=== PATIENT | male | born 1980 | race Caucasian/White ===

== ENCOUNTER 2018-05-18 11:31 | Emergency (ER) | payer OTHER ==
--- NOTE | 2018-05-18 11:48 | ERPHSYRPT ---
- History of Present Illness Time Seen by Provider: 05/18/18 11:47 Source: patient Exam Limitations: no limitations Physician History: 37-year-old white male who states that he has had abdominal pain off and on for 3 years arrives with complaint of periumbilical abdominal pain since 932 days she states she's had diarrhea for 3 days he's been nauseous he feels a little dizzy denies any urinary symptoms Patient does have a history of umbilical hernia he states he usually can push it back in and is able to push on his umbilical hernia without problems on arrival. Past medical history patient denies significant past medical history. Past surgical history: Patient denies Social history positive tobacco positive marijuana. Timing/Duration: other (patient states intermittant abdominal pain for 3 years but began today at 9:30 AM) Modifying Factors: Worsens With: eating, immobilization, medication, movement, rest, acetaminophen, ibuprofen, nothing Associated Symptoms: nausea, abdominal pain (Periumbilical abdominal pain), No vomiting, No shortness of breath, No heartburn, No diaphoresis, No cough, No chills, No chest pain, No fever, No headaches, No loss of appetite, No malaise, No rash, No syncope, No seizure, No weakness (Is) Allergies/Adverse Reactions: No Known Drug Allergies Allergy (Unverified 05/18/18 11:52) - Review of Systems Constitutional: No Fever, No Chills Eyes: No Symptoms Ears, Nose, & Throat: No Symptoms Respiratory: No Cough, No Dyspnea Cardiac: No Chest Pain, No Edema, No Syncope Abdominal/Gastrointestinal: Abdominal Pain, Nausea, Diarrhea, No Vomiting, No Constipation, No Hematemesis, No Hematochezia, No Melena, No Dysphagia, No Appetite Changes Genitourinary Symptoms: No Dysuria Musculoskeletal: No Back Pain, No Neck Pain Skin: No Rash Neurological: Dizziness, No Focal Weakness, No Gait Changes, No Headache, No Irritability, No Lethargy, No Paralysis, No Parasthesia, No Seizure, No Sensory Changes, No Speech Changes, No Tics, No Tremors, No Vertigo Psychological: No Symptoms Endocrine: No Symptoms All Other Systems: Reviewed and Negative - Past Medical History Pertinent Past Medical History: No - Past Surgical History Past Surgical History: No - Nursing Vital Signs Nursing Vital Signs: Initial Vital Signs Temperature 98.4 F 05/18/18 11:46 Pulse Rate 78 05/18/18 11:46 Respiratory Rate 18 05/18/18 11:46 Blood Pressure 140/80 05/18/18 11:46 O2 Sat by Pulse Oximetry 97 05/18/18 11:46 Pain Scale Pain Intensity 4 - Physical Exam General Appearance: mild distress Eye Exam: PERRL/EOMI, eyes nml inspection Ears, Nose, Throat Exam: normal ENT inspection, TMs normal, pharynx normal, moist mucous membranes Neck Exam: normal inspection, non-tender, supple, full range of motion Respiratory Exam: normal breath sounds, lungs clear, No respiratory distress Cardiovascular Exam: regular rate/rhythm, normal heart sounds, normal peripheral pulses, capillary refill <2 sec, No murmur Gastrointestinal/Abdomen Exam: soft, normal bowel sounds, tenderness ( periumbilical tenderness), hernia (Periumbilical hernia reduces easily but with pain), No distention, No mass, No guarding Back Exam: normal inspection, normal range of motion, No CVA tenderness, No vertebral tenderness Extremity Exam: normal inspection, normal range of motion, pelvis stable Neurologic Exam: alert, oriented x 3, cooperative, commercial assistant II-XII nml as tested, normal mood/affect, nml cerebellar function, nml station & gait, sensation nml, No motor deficits Skin Exam: normal color, warm, dry, No rash SpO2 Interpretation: normal - Course Nursing assessment & vital signs reviewed: Yes - CT Exams Abdomen/Pelvis CT Interpretation: Discussed w/radiologist (CT abdomen and pelvis with contrast impression: 1. 2.94.4 cm left adrenal gland mass. Findings possible adenoma and could be confirmed on a noncontrast CT exam. 2. Fatty right inguinal and fatty umbilical hernias.3. Remaining CT abdomen/pelvis with contrast exam is negative.) Ordered Tests: Active Orders 24 hr Category Date Time Status IV Insertion STAT Care 05/18/18 11:53 Active ABDOMEN AND PELVIS W CONTRAST [CT] Stat Exams 05/18/18 12:39 Completed AMYLASE Stat Lab 05/18/18 12:05 Completed CBC W DIFF Stat Lab 05/18/18 12:05 Completed CMP Stat Lab 05/18/18 12:05 Completed LIPASE Stat Lab 05/18/18 12:05 Completed UA W/RFX UR CULTURE Stat Lab 05/18/18 12:05 Completed Urine Triage Profile Stat Lab 05/18/18 12:05 Completed Medication Summary Discontinued Medications Generic Name Dose Route Start Last Admin Trade Name Misti PRN Reason Stop Dose Admin Sodium Chloride 1,000 mls @ 999 mls/hr 05/18/18 11:53 05/18/18 12:10 Sodium Chloride 0.9% 1000 Ml IV 05/18/18 12:53 999 mls/hr .Q1H1M STA Administration Sodium Chloride Confirm 05/18/18 12:05 Sodium Chloride 0.9% 1000 Ml Administered 05/18/18 12:06 Dose 1,000 mls @ ud .ROUTE .STK-MED ONE Morphine Sulfate 4 mg 05/18/18 12:42 05/18/18 12:52 Morphine Sulfate 4 Mg Inj IV 05/18/18 12:43 4 mg STAT ONE Administration Morphine Sulfate Confirm 05/18/18 12:51 Morphine Sulfate 4 Mg Inj Administered 05/18/18 12:52 Dose 4 mg .ROUTE .STK-MED ONE Promethazine HCl 12.5 mg 05/18/18 11:53 05/18/18 12:10 Phenergan 25 Mg Inj IV 05/18/18 11:54 12.5 mg STAT ONE Administration Promethazine HCl Confirm 05/18/18 12:05 Phenergan 25 Mg Inj Administered 05/18/18 12:06 Dose 25 mg .ROUTE .STK-MED ONE Lab/Rad Data: Laboratory Result Diagrams 05/18/18 12:05 05/18/18 12:05 Laboratory Results 05/18/18 05/18/18 05/18/18 Range/Units 12:05 12:05 12:05 WBC (4.0-10.5) K/mm3 RBC (4.1-5.6) M/mm3 Hgb (12.5-18.0) gm/dl Hct (42-50) % MCV (78-100) fl MCH (26-32) pg MCHC (32-36) g/dl RDW (11.5-14.0) % Plt Count (150-450) K/mm3 MPV (6-9.5) fl Gran % (36.0-66.0) % Eos # (Auto) (0-0.5) Absolute Lymphs (auto) (1.0-4.6) Absolute Monos (auto) (0.0-1.3) Lymphocytes % (24.0-44.0) % Monocytes % (0.0-12.0) % Eosinophils % (0.00-5.0) % Basophils % (0.0-0.4) % Absolute Granulocytes (1.4-6.9) Basophils # (0-0.4) Sodium 141 (137-145) mmol/L Potassium 4.0 (3.5-5.1) mmol/L Chloride 105 (98-107) mmol/L Carbon Dioxide 26 (22-30) mmol/L Anion Gap 13.5 (5-15) MEQ/L BUN 15 (9-20) mg/dL Creatinine 0.79 (0.66-1.25) mg/dL Estimated GFR > 60.0 ML/MIN Glucose 102 (74-106) mg/dL Calcium 9.5 (8.4-10.2) mg/dL Total Bilirubin 0.70 (0.2-1.3) mg/dL AST 21 (17-59) U/L ALT 20 (0-50) U/L Alkaline Phosphatase 85 (38-126) U/L Serum Total Protein 7.7 (6.3-8.2) g/dL Albumin 4.6 (3.5-5.0) g/dL Amylase 54 (30-110) U/L Lipase 26 (23-300) U/L Urine Color YELLOW (YELLOW) Urine Appearance CLEAR (CLEAR) Urine pH 5.0 (5-6) Ur Specific [place] 1.024 (1.005-1.025) Urine Protein NEGATIVE (Negative) Urine Ketones NEGATIVE (NEGATIVE) Urine Blood SMALL (0-5) Dominic/ul Urine Nitrite NEGATIVE (NEGATIVE) Urine Bilirubin NEGATIVE (NEGATIVE) Urine Urobilinogen NEGATIVE (0-1) mg/dL Ur Leukocyte Esterase NEGATIVE (NEGATIVE) Urine WBC (Auto) NONE (0-5) /HPF Urine RBC (Auto) NONE (0-2) /HPF U Epithel Cells (Auto) NONE (FEW) /HPF Urine Bacteria (Auto) NONE (NEGATIVE) /HPF Urine Mucus (Auto) SLIGHT (NEGATIVE) /HPF Urine Culture Reflexed NO (NO) Urine Glucose NEGATIVE (NEGATIVE) mg/dL Urine Opiates Level NEGATIVE (NEGATIVE) Ur Methadone NEGATIVE (NEGATIVE) Urine Barbiturates NEGATIVE (NEGATIVE) Ur Phencyclidine (PCP) NEGATIVE (NEGATIVE) Urine Amphetamine NEGATIVE (NEGATIVE) U Benzodiazepine Level NEGATIVE (NEGATIVE) Urine Cocaine NEGATIVE (NEGATIVE) Urine Marijuana (THC) POSITIVE (NEGATIVE) 05/18/18 Range/Units 12:05 WBC 6.4 (4.0-10.5) K/mm3 RBC 5.07 (4.1-5.6) M/mm3 Hgb 16.0 (12.5-18.0) gm/dl Hct 46.5 (42-50) % MCV 91.7 (78-100) fl MCH 31.6 (26-32) pg MCHC 34.4 (32-36) g/dl RDW 12.4 (11.5-14.0) % Plt Count 202 (150-450) K/mm3 MPV 11.4 H (6-9.5) fl Gran % 58.8 (36.0-66.0) % Eos # (Auto) 0.15 (0-0.5) Absolute Lymphs (auto) 1.75 (1.0-4.6) Absolute Monos (auto) 0.71 (0.0-1.3) Lymphocytes % 27.3 (24.0-44.0) % Monocytes % 11.1 (0.0-12.0) % Eosinophils % 2.3 (0.00-5.0) % Basophils % 0.5 (0.0-0.4) % Absolute Granulocytes 3.76 (1.4-6.9) Basophils # 0.03 (0-0.4) Sodium (137-145) mmol/L Potassium (3.5-5.1) mmol/L Chloride (98-107) mmol/L Carbon Dioxide (22-30) mmol/L Anion Gap (5-15) MEQ/L BUN (9-20) mg/dL Creatinine (0.66-1.25) mg/dL Estimated GFR ML/MIN Glucose (74-106) mg/dL Calcium (8.4-10.2) mg/dL Total Bilirubin (0.2-1.3) mg/dL AST (17-59) U/L ALT (0-50) U/L Alkaline Phosphatase (38-126) U/L Serum Total Protein (6.3-8.2) g/dL Albumin (3.5-5.0) g/dL Amylase (30-110) U/L Lipase (23-300) U/L Urine Color (YELLOW) Urine Appearance (CLEAR) Urine pH (5-6) Ur Specific [place] (1.005-1.025) Urine Protein (Negative) Urine Ketones (NEGATIVE) Urine Blood (0-5) Dominic/ul Urine Nitrite (NEGATIVE) Urine Bilirubin (NEGATIVE) Urine Urobilinogen (0-1) mg/dL Ur Leukocyte Esterase (NEGATIVE) Urine WBC (Auto) (0-5) /HPF Urine RBC (Auto) (0-2) /HPF U Epithel Cells (Auto) (FEW) /HPF Urine Bacteria (Auto) (NEGATIVE) /HPF Urine Mucus (Auto) (NEGATIVE) /HPF Urine Culture Reflexed (NO) Urine Glucose (NEGATIVE) mg/dL Urine Opiates Level (NEGATIVE) Ur Methadone (NEGATIVE) Urine Barbiturates (NEGATIVE) Ur Phencyclidine (PCP) (NEGATIVE) Urine Amphetamine (NEGATIVE) U Benzodiazepine Level (NEGATIVE) Urine Cocaine (NEGATIVE) Urine Marijuana (THC) (NEGATIVE) - Progress Progress: improved Progress Note: 05/18/18 13:41 Patient feeling better after IV morphine, IV normal saline, and IV Phenergan. CBC CMP UA amylase lipase essentially normal Patient's CT abdomen with contrast impression 1. 2.94.4 cm left adrenal gland mass. Finding possible adenoma and could be confirmed on a noncontrasted CT exam. 2. Fatty right inguinal hernia and fatty umbilical hernias 3. Remaining CT abdomen and pelvis with contrast exam is negative I have informed the patient of his CT findings the inguinal and umbilical hernia are fatty hernias. Patient appears to be stable. I have informed him of the left adrenal mass. I have recommended that they follow-up with their family doctor (alexandro) or Dr. Mejia. And and recommended that they do need follow-up for this. Will write a small amount of Jolo for pain and tell patient to avoid straining his abdomen. - Departure Time of Disposition: 13:44 Departure Disposition: Home Clinical Impression: Right inguinal hernia, Mass of left adrenal gland Abdominal pain Qualifiers: Abdominal location: periumbilical Qualified Code(s): R10.33 - Periumbilical pain Umbilical hernia Qualifiers: Obstruction and gangrene presence: without obstruction or gangrene Qualified Code(s): K42.9 - Umbilical hernia without obstruction or gangrene Condition: Fair Critical Care Time: No Referrals: DOCTOR,NO FAMILY [Primary Care Provider] - Additional Instructions: Return home. Plenty of fluids. Clear fluids only 24-48 hours if abdominal pain. Avoid abdominal straining. Jolo 5/325 #12 one orally every 4-6 hours as needed for pain. Follow-up with your family doctor (alexandro) or Dr. Mejia. Call for an appointment and arrange follow-up. You do have a fatty umbilical hernia, a right fatty inguinal hernia, and a left adrenal mass. You will need follow-up. Return for acute distress or for severe symptoms. Prescriptions: Hydrocodone/Acetaminophen [Jolo 5-325 Tablet] 1 tablet PO Q4-6HPRN PRN #12 tablet MDD 6 tablets PRN Reason: Pain
[2018-05-18] MEDS ORDERED: Phenergan 25 MG INJ ONE (12:05)
[2018-05-18] MEDS ORDERED: Sodium Chloride 0.9% 1000 ML 1,000 ML ONE (12:05)
[2018-05-18] MEDS: Sodium Chloride 0.9% 1000 ML 1,000 ML IV STA (12:10)
[2018-05-18] MEDS: Phenergan 25 MG INJ IV ONE (12:10)
[2018-05-18 12:24] LABS: Appearance CLEAR (CLEAR); Bilirubin NEGATIVE (NEGATIVE); Blood SMALL Ery/ul (0-5); Glucose NEGATIVE (NEGATIVE); Ketones NEGATIVE (NEGATIVE); Leukocyte Esterase NEGATIVE (NEGATIVE); Nitrite NEGATIVE (NEGATIVE); Protein,Urine Dip NEGATIVE (Negative); Specific Gravity 1.024 (1.005-1.025); Urobilinogen NEGATIVE mg/dL (0-1)
[2018-05-18 12:29] LABS: BASOPHIL % 0.5 % (0.0-0.4); Basophil (Absolute #) 0.03 (0-0.4); Eosinophil % 2.3 % (0.00-5.0); Eosinophil (Absolute #) 0.15 (0-0.5); Granulocyte Absolute (ANC) 3.76 (1.4-6.9); Granulocytes % 58.8 % (36.0-66.0); Hematocrit 46.5 % (42-50); Lymphocyte (Absolute #) 1.75 (1.0-4.6); Lymphocytes % 27.3 % (24.0-44.0); Mean Cell Volume 91.7 fl (78-100); Mean Corpuscular Hemoglobin 31.6 pg (26-32); Mean Corpuscular Hgb Concent. 34.4 g/dl (32-36); Mean Platelet Volume 11.4 fl (6-9.5); Monocyte (Absolute #) 0.71 (0.0-1.3); Monocytes % 11.1 % (0.0-12.0); Platelet Count 202 K/mm3 (150-450); Red Blood Count 5.07 M/mm3 (4.1-5.6); Red Cell Distribution Width 12.4 % (11.5-14.0); White Blood Count 6.4 K/mm3 (4.0-10.5)
[2018-05-18 12:31] LABS: ALBUMIN 4.6 g/dL (3.5-5.0); ALKALINE PHOSPHATASE 85 U/L (38-126); AMYLASE 54 U/L (30-110); ANION GAP 13.5 MEQ/L (5-15); BLOOD UREA NITROGEN 15 mg/dL (9-20); CHLORIDE 105 mmol/L (98-107); Calcium 9.5 mg/dL (8.4-10.2); Carbon Dioxide 26 mmol/L (22-30); Creatinine 1 0.79 mg/dL (0.66-1.25); Glucose 102 mg/dL (74-106); LIPASE 26 U/L (23-300); SGOT/AST 21 U/L (17-59); SGPT/ALT 20 U/L (0-50); SODIUM 141 mmol/L (137-145); Total Protein 7.7 g/dL (6.3-8.2)
[2018-05-18 12:33] LABS: Amphetamine,Urine NEGATIVE (NEGATIVE); Barbiturate,Urine NEGATIVE (NEGATIVE); Benzodiazepine,Urine NEGATIVE (NEGATIVE); Cocaine,Urine NEGATIVE (NEGATIVE); Methadone,Urine NEGATIVE (NEGATIVE); Opiate,Urine NEGATIVE (NEGATIVE); PCP,Urine NEGATIVE (NEGATIVE); THC,Urine POSITIVE (NEGATIVE)
[2018-05-18] MEDS ORDERED: MORPHINE SULFATE 4 MG INJ ONE (12:51)
[2018-05-18] MEDS: MORPHINE SULFATE 4 MG INJ IV ONE (12:52)
--- NOTE | 2018-05-18 13:37 | XRAY ---
Indication: Intermittent abdomen pain for 3 years. Diarrhea. Multiple contiguous axial images obtained through the abdomen and pelvis using 100 cc Isovue 370 contrast only. Comparison: None Lung bases demonstrates minimal bibasilar atelectasis/scarring. No infiltrate or effusion. Heart is not enlarged. Noncontrasted stomach and bowel loops appear nonobstructed. Normal appendix. No free fluid/air. 2.9 x 4.4 cm left adrenal gland noncalcified mass. Remaining liver, gallbladder, pancreas, spleen, right adrenal gland, kidneys, ureters, bladder, and aorta appear unremarkable. No pathologic retroperitoneal lymphadenopathy. Osseous structures intact. Tiny multilevel thoracolumbar Schmorl nodes. Small fatty right inguinal and fatty umbilical hernias. Impression: 1. 2.9 x 4.4 cm left adrenal gland mass. Finding possible adenoma and could be confirmed on a noncontrast CT exam. 2. Fatty right inguinal and fatty umbilical hernias. 3. Remaining CT abdomen/pelvis with contrast exam is negative. CT DI 23.68
[2018-05-18 14:25] VITALS: BP 140/58; PULSE 97; O2SAT 94
== END 2018-05-18 14:28 | disposition home or self-care (01) ==
LOC: ED 11:31
DX: K40.90 Unilateral inguinal hernia, without obstruction or gangrene, not specified as recurrent (principal); N28.89 Other specified disorders of kidney and ureter; R10.33 Periumbilical pain; K42.9 Umbilical hernia without obstruction or gangrene; F17.200 Nicotine dependence, unspecified, uncomplicated
CPT/HCPCS: 36415; 74177; 80053; 80307; 81001; 82150; 83690; 85025; 96374; 96375; 99284; J2270; J2550

== ENCOUNTER 2018-06-30 06:57 | Day surgery (SDC) | payer OTHER ==
[~2018-06-30 06:57] MED LIST: Lactated Ringers 1,000 ML IV ONE; Sensorcaine 0.25% 10 ML ONE
[2018-06-30] MEDS ORDERED: SUBLIMAZE 250 MCG/5 ML IV ONE (06:58)
[2018-06-30] MEDS ORDERED: Zemuron 100 MG/10 ML IJ ONE (06:58)
[2018-06-30] MEDS ORDERED: BRIDION 200MG/2ML IV ONE (06:58)
[2018-06-30] MEDS ORDERED: DIPRIVAN 200 MG/20 ML IV ONE (06:58)
[2018-06-30] MEDS ORDERED: Versed 2 MG/2 ML Injection IV ONE (06:58)
[2018-06-30] MEDS ORDERED: Lactated Ringers 1,000 ML IV ONE (07:29)
[2018-06-30] MEDS ORDERED: CEFAZOLIN 2 GM-D5W BAG** 2 GM/50 ML ML IV ONE (07:29)
[2018-06-30] MEDS ORDERED: CEFAZOLIN 2 GM-D5W BAG** 2 GM/50 ML ML IV SCH (07:30)
[2018-06-30] MEDS ORDERED: Lactated Ringers 1,000 ML IV SCH ×2 (07:30→08:00)
[2018-06-30] MEDS ORDERED: DILAUDID 2 MG INJECTION ONE (09:56)
[2018-06-30] MEDS ORDERED: Zofran 4 MG/2 ML VIAL ONE (10:03)
[2018-06-30 11:23] VITALS: BP 133/76; PULSE 80; O2SAT 96
--- NOTE | 2018-06-30 12:31 | OP ---
SURGERY DATE/TIME: 06/30/2018 0850 PREOPERATIVE DIAGNOSIS: Symptomatic incarcerated umbilical hernia. POSTOPERATIVE DIAGNOSIS: Incarcerated hernia symptomatic. PROCEDURE: Umbilical herniorrhaphy with mesh. SURGEON: Romulo Mejia M.D. ANESTHESIA: General. COMPLICATIONS: None. CONDITION: Stable. INDICATION: The hernia was marked preoperatively. DESCRIPTION OF PROCEDURE: Taken to surgery. General anesthetic. Routine prep and drape. Time out performed. Curvilinear infra-umbilical incision. Hernia sac was bilobed. The fascia defined. The defect was large enough to justify mesh. It was about 2 cm. There is a small pinpoint ventral 1 cm above this that was reduced and closed with 0 Prolene. The mesh was soaked. It was placed. It was pulled up four quadrants. Four inner quadrant sutures 0 Prolene. Subcutaneous tissue and umbilicus closed with 4-0 Vicryl. Compressive umbilical dressing applied. The patient tolerated the procedure satisfactorily. 0.25% Marcaine had been placed.
== END 2018-06-30 11:17 | disposition home or self-care (01) ==
LOC: SDC 06:57
PROVIDERS: ATTEND Surgery
DX: K42.0 Umbilical hernia with obstruction, without gangrene (principal)
CPT/HCPCS: J0690; J1170; J2250; J2405; J2704; J3010; L0625

== ENCOUNTER 2021-02-10 20:20 | Emergency (ER) | payer MEDICAID, OTHER ==
[2021-02-10 22:30] VITALS: O2SAT 97
--- NOTE | 2021-02-10 23:10 | ERPHSYRPT ---
- History of Present Illness Historian: patient Exam Limitations: no limitations Patient Subjective Stated Complaint: I've quarantined myself for the last 3 days because I've had some symptoms of covid and I want to know if I have covid so I don't expose someone. Triage Nursing Assessment: pt c/o cough which is harsher than normal, low grade fever, diarrhea and headache. Pt usually has a cough due to being a smoker but this current cough is harsher than normal. Pt also states, "I can smell paint and I haven't been around paint". Lungs sounds are diminished throughout with exp wheezes noted. Physician History: 40 yo wm w diarrhea,mild nausea, myalgias, mild cough wo fever/coryza x3 days. Timing/Duration: day(s) (3 days) Activities at Onset: rest Quality: other (No pain) Pain Radiation: no radiation Severity of Pain-Max: none Severity of Pain-Current: none Modifying Factors: Improves With: nothing Associated Symptoms: diarrhea, nausea, No back, No chest pain, No diaphoresis, No fever/chills, No fatigue, No headache, No heartburn, No loss of appetite, No neck pain, No rash, No shortness of breath, No syncope, No vomiting, No weakness Previous symptoms: no prior history Allergies/Adverse Reactions: lidocaine Allergy (Intermediate, Verified 02/10/21 22:30) Swelling Home Medications: No Reportable Medications [No Reported Medications] 02/10/21 [History] Hx Tetanus, Diphtheria Vaccination/Date Given: Yes Hx Influenza Vaccination/Date Given: No Hx Pneumococcal Vaccination/Date Given: No Immunizations Up to Date: Yes Travel Risk - International Travel Have you traveled outside of the country in past 3 weeks: No - Coronavirus Screening Are you exhibiting any of the following symptoms?: Yes Symptoms: Fever, Cough: New Onset, Vomiting/Diarrhea, Headaches/Body Aches/Fatigue Close contact with a COVID-19 positive Pt in past 14-21 Days: No - Vaccine Status Have you recieved a Covid-19 vaccination: No - Review of Systems Constitutional: No Symptoms, Lethargy Eyes: No Symptoms Ears, Nose, & Throat: No Symptoms Respiratory: No Symptoms, Cough Cardiac: No Symptoms Abdominal/Gastrointestinal: No Symptoms, Nausea, Diarrhea Genitourinary Symptoms: No Symptoms Musculoskeletal: No Symptoms, Myalgias Skin: No Symptoms Neurological: No Symptoms Psychological: No Symptoms Endocrine: No Symptoms Hematologic/Lymphatic: No Symptoms Immunological/Allergic: No Symptoms - Past Medical History Pertinent Past Medical History: Yes Neurological History: No Pertinent History ENT History: No Pertinent History Cardiac History: No Pertinent History Respiratory History: Other Endocrine Medical History: No Pertinent History Musculoskeletal History: No Pertinent History GI Medical History: GERD History: No Pertinent History Psycho-Social History: No Pertinent History Male Reproductive Disorders: No Pertinent History Other Medical History: current everyday smoker - Past Surgical History Past Surgical History: Yes Neuro Surgical History: No Pertinent History Cardiac: No Pertinent History Respiratory: No Pertinent History Gastrointestinal: Hernia Repair Genitourinary: No Pertinent History Musculoskeletal: No Pertinent History Male Surgical History: No Pertinent History Other Surgical History: Hx of oral surgery. - Social History Smoking Status: Current every day smoker How long have you smoked: 26 yrs Exposure to second hand smoke: Yes Drug Use: none Patient Lives Alone: Yes - Nursing Vital Signs Nursing Vital Signs: Initial Vital Signs Temperature 98.8 F 02/10/21 22:17 Pulse Rate 80 02/10/21 22:17 Respiratory Rate 20 02/10/21 22:17 Blood Pressure 140/88 02/10/21 22:17 O2 Sat by Pulse Oximetry 98 02/10/21 22:17 Pain Scale Pain Intensity 0 Hypertensive - Physical Exam General Appearance: no apparent distress Eye Exam: PERRL/EOMI, eyes nml inspection Ears, Nose, Throat Exam: normal ENT inspection, TMs normal, pharynx normal, moist mucous membranes Neck Exam: normal inspection, non-tender, supple, full range of motion, No meningismus Respiratory Exam: airway intact, wheezing (Occ B), No respiratory distress Cardiovascular Exam: regular rate/rhythm, normal heart sounds, normal peripheral pulses, No murmur Gastrointestinal/Abdomen Exam: soft, normal bowel sounds, No tenderness Back Exam: normal inspection, normal range of motion, No CVA tenderness, No vertebral tenderness Extremity Exam: normal inspection, normal range of motion Neurologic Exam: alert, oriented x 3, cooperative, business excellence manager II-XII nml as tested, normal mood/affect, nml cerebellar function, sensation nml, No motor deficits, No sensory deficit Skin Exam: normal color, warm, dry, No rash Lymphatic Exam: No adenopathy SpO2 Interpretation: normal SpO2: 97 O2 Delivery: Room Air - Course Nursing assessment & vital signs reviewed: Yes - Progress Progress Note: 02/10/21 23:09 Sars sent to outside lab Counseled pt/family regarding: diagnosis, need for follow-up - Departure Departure Disposition: Home Clinical Impression: Diarrhea Condition: Stable Critical Care Time: No Referrals: DOCTOR,NO FAMILY [Primary Care Provider] - Instructions: Diarrhea in Adolescents and Adults Additional Instructions: Fluids Rest Covid19 test will be back in 2-3 days Return to ER as needed
[2021-02-10 23:13] VITALS: BP 148/81; PULSE 87
== END 2021-02-10 23:21 | disposition home or self-care (01) ==
LOC: ED 20:20
DX: R19.7 Diarrhea, unspecified (principal); R05 Cough; R51.9 Headache, unspecified; R50.9 Fever, unspecified; M79.18 Myalgia, other site; J00 Acute nasopharyngitis [common cold]; R11.0 Nausea
CPT/HCPCS: 99283; U0003

== ENCOUNTER 2025-03-13 10:01 | Emergency (ER) | payer OTHER ==
[2025-03-13 10:16] VITALS: TEMP 97.2
[2025-03-13 10:22] LABS: BASOPHIL % 0.5 % (0.2-1.2); Basophil (Absolute #) 0.05 x10^3/uL (0.01-0.08); Eosinophil (Absolute #) 0.19 x10^3/uL (0.04-0.54); Hematocrit 44.8 % (40.1-51.0); Hemoglobin 14.5 g/dL (13.7-17.5); IMMATURE GRAN # 0.05 x10^3u/L (0.001-0.031); IMMATURE GRAN % 0.5 % (0.001-0.429); Lymphocyte (Absolute #) 1.86 x10^3/uL (1.32-3.57); Mean Corpuscular Hemoglobin 30.9 pg (25.7-32.2); Mean Corpuscular Hgb Concent. 32.4 g/dL (32.3-36.5); Monocyte (Absolute #) 1.10 x10^3/uL (0.30-0.82); NUCLEATED RBC # 0.00 x10^3u/L (0.00-0.012); NUCLEATED RBC % 0.0 % (0.00-0.2); Platelet Count 267 x10^3/uL (163-337); Red Blood Count 4.69 x10^6/uL (4.63-6.08); White Blood Count 10.3 x10^3/uL (4.23-9.07)
[2025-03-13] MEDS ORDERED: Sterile H2O 10 ml IJ ONE (10:30)
[2025-03-13] MEDS ORDERED: Magnesium 1 Gm / 100 Ml D5W*** 200 ML IV ONE (10:30)
[2025-03-13] MEDS: solu-MEDROL 125 MG, Sterile H2O 10 ml 2 ML IV ONE (10:31)
[2025-03-13] MEDS: Magnesium 1 Gm / 100 Ml D5W*** 100 ML IV SCH (10:32)
[2025-03-13] MEDS ORDERED: PROVENTIL Solution 2.5 MG/0.5 ML IH ONE (10:34)
[2025-03-13] MEDS ORDERED: DUONEB 0.5-3 MG/3 ml Neb IH ONE (10:34)
--- NOTE | 2025-03-13 10:40 | XRAY ---
Indication: Chest pain. Comparison: May 06, 2024 Portable chest inflated and clear. Heart and mediastinal structures within normal limits. Bony thorax intact. No new/acute findings. Impression: Continued nonacute chest.
[2025-03-13 10:45] LABS: Calcium 9.2 mg/dL (8.4-10.2); Carbon Dioxide 34.0 mmol/L (22-30); Creatinine 1 0.67 mg/dL (0.66-1.25); EST GLOMERULAR FILTRATION RATE 119.6 ML/MIN; Glucose 107.0 mg/dL (74-106); NT PRO BNPII 20.4 pg/mL (<300); Potassium 4.3 mmol/L (3.5-5.1); SGOT/AST 27.0 U/L (17-59); SGPT/ALT 25.0 U/L (0-50); Total Protein 7.1 g/dL (6.3-8.2)
[2025-03-13] MEDS: PROVENTIL 2.5 MG/3 ML NEB IH ONE (10:49)
[2025-03-13] MEDS: DUONEB 0.5-3 MG/3 ml Neb IH ONE (10:49)
[2025-03-13 11:05] LABS: INR 0.99 (0.8-3.0); PROTIME 11.1 SECONDS (9.4-12.5); PTT 30.6 SECONDS (25.1-36.5)
--- NOTE | 2025-03-13 11:20 | ERPHSYRPT ---
- History of Present Illness Time Seen by Provider: 03/13/25 10:11 Source: patient Patient Subjective Stated Complaint: pt here for chest pain for 45 mins. prior to arrival, he states he was resting when pain started, he is noncompliant with meds. also reports that he has been ill for 3 weeks with cough, congestion, runny nose but no fever. Triage Nursing Assessment: pt alert, arrived per wc, resp easy, falls asleep at times during treaments, easily awakes. no cough, chest clear, moves all ext well, skin w/d/p Physician History: This is a 44-year-old male complaining of 45-minute left-sided chest pain nonradiating constant which began prior to arrival. Patient states that he, "had a heart attack 5 years ago" where he was admitted to the hospital, "and had some scans done" and no other procedures such as cardiac cath. In discussing with him it is indeterminate whether he had a heart attack or was admitted for chest pain which by his description seems to be more the latter. He apparently moved from [place] and was post to be on "medications, but I do not know what they are". Patient does smoke heavily, but states he is gone from 5 packs a day to 2 to 3 packs a day. Denies history of asthma or COPD. Patient does have shortness of breath. He has been coughing. Patient has chronic leg edema. Patient does smoke marijuana, but denies other drugs. Denies alcohol abuse. Allergies/Adverse Reactions: lidocaine Allergy (Intermediate, Verified 03/13/25 10:02) Swelling pt now states he is not 02/2025 Home Medications: No Reportable Medications [No Reported Medications] 02/10/21 [History] Hx Tetanus, Diphtheria Vaccination/Date Given: Yes Hx Influenza Vaccination/Date Given: No Hx Pneumococcal Vaccination/Date Given: No Immunizations Up to Date: Yes Travel Risk - International Travel Have you traveled outside of the country in past 3 weeks: No - Emerging Infectious Disease Are you exhibiting symptoms associated with any current EIDs: No - Review of Systems All Other Systems: Reviewed and Negative (As per HPI otherwise negative) - Past Medical History Pertinent Past Medical History: Yes Neurological History: No Pertinent History ENT History: No Pertinent History Cardiac History: No Pertinent History, Coronary Artery Disease, Myocardial Infarction (SD) Respiratory History: Sleep Apnea, Other Endocrine Medical History: No Pertinent History Musculoskeletal History: No Pertinent History GI Medical History: GERD History: No Pertinent History Psycho-Social History: No Pertinent History Male Reproductive Disorders: No Pertinent History Other Medical History: current everyday smoker - Past Surgical History Past Surgical History: Yes Neuro Surgical History: No Pertinent History Cardiac: No Pertinent History Respiratory: No Pertinent History Gastrointestinal: Hernia Repair Genitourinary: No Pertinent History Musculoskeletal: No Pertinent History Male Surgical History: No Pertinent History Other Surgical History: Hx of oral surgery. - Social History Smoking Status: Current every day smoker How long have you smoked: 26 yrs Exposure to second hand smoke: Yes Drug Use: marijuana - Social Determinants of Health Will the patient participate in the screening: Declined to provide - Nursing Vital Signs Nursing Vital Signs: Initial Vital Signs Pulse Rate 78 03/13/25 10:05 Respiratory Rate 15 03/13/25 10:05 Blood Pressure 171/104 03/13/25 10:05 Pain Scale Pain Intensity 10 - Physical Exam SpO2: 91 Comments: 03/13/25 11:17 General: Well-nourished well-developed. No apparent distress. Obese. HEENT: Normocephalic atraumatic no obvious facial or neck deformity or injury. Neck: Supple. No deformity or mass noted. CV: RRR NL Perfusion. No edema Resp: No Respiratory distress. Bilateral very diminished breath sounds. Back: Patient has AN 8 cm round fungating vascular bleeding mass over his left superior scapular region which she states has "been there" for some time. Patient has never had it looked at. Abd: ND SNT MSK: No deformity or TTP Neuro: Alert and [place] x4. No gross focal neurologic changes Psych: No SI, HI or grave disability Ordered Tests: Active Orders 24 hr Category Date Time Status Cooling Pan Tender STAT Care 03/13/25 10:13 Active EKG-ER Only STAT Care 03/13/25 10:11 Active IV Insertion STAT Care 03/13/25 10:11 Active CHEST 1 VIEW (PORTABLE) Stat Exams 03/13/25 10:12 Completed CHEST WITH CONTRAST [CT] Stat Exams 03/13/25 10:28 Completed ABG [ARTERIAL BLOOD GASES] Stat Lab 03/13/25 11:20 Completed CBC W DIFF Stat Lab 03/13/25 10:00 Completed CMP Stat Lab 03/13/25 10:00 Completed D-DIMER QUANTITATIVE Stat Lab 03/13/25 10:00 Completed NT PRO BNPII Stat Lab 03/13/25 10:00 Completed PROTIME WITH INR Stat Lab 03/13/25 10:00 Completed PTT Stat Lab 03/13/25 10:00 Completed TROPONIN Q4H Lab 03/13/25 10:00 Completed TROPONIN Q4H Lab 03/13/25 13:10 Completed Respiratory Therapy Assessment DAILY RT 03/13/25 10:50 Active Medication Summary Generic Name Dose Route Start Last Admin Trade Name Freq PRN Reason Stop Dose Admin Magnesium Sulfate/Dextrose 100 mls @ 100 mls/hr 03/13/25 10:30 03/13/25 12:25 Magnesium 1 Gm / 100 Ml D5w IV 03/13/25 12:29 Infused Q1H ELIGIO Infusion Discontinued Medications Generic Name Dose Route Start Last Admin Trade Name Freq PRN Reason Stop Dose Admin Albuterol Sulfate 7.5 mg 03/13/25 10:27 03/13/25 10:49 Albuterol Sulfate 2.5 Mg/3 Ml Neb IH 03/13/25 10:28 7.5 mg STAT ONE Administration Albuterol Sulfate Confirm 03/13/25 10:34 Albuterol Solution 2.5 Mg/0.5 Ml Ud Solution Administered 03/13/25 10:35 Dose 2.5 mg IH .STK-MED ONE Albuterol/Ipratropium 3 ml 03/13/25 10:27 03/13/25 10:49 Ipratropium/Albuterol Sulfate 3 Ml Ampul.Neb IH 03/13/25 10:28 3 ml STAT ONE Administration Albuterol/Ipratropium Confirm 03/13/25 10:34 Ipratropium/Albuterol Sulfate 3 Ml Ampul.Neb Administered 03/13/25 10:35 Dose 3 ml IH .STK-MED ONE Aspirin 324 mg 03/13/25 13:07 03/13/25 13:20 Aspirin 81 Mg Tab.Chew PO 03/13/25 13:08 324 mg STAT ONE Administration Aspirin Confirm 03/13/25 13:19 Aspirin 81 Mg Tab.Chew Administered 03/13/25 13:20 Dose 324 mg .ROUTE .STK-MED ONE Methylprednisolone Sodium 0 mg 03/13/25 10:27 03/13/25 10:31 Succinate 125 mg/ Sterile IV 03/13/25 10:28 125 mg Water 2 ml STAT ONE Administration Methylprednisolone Sodium Succinate Confirm 03/13/25 10:30 Methylprednis Sod Succ 125 Mg/2 Ml Vial Administered 03/13/25 10:31 Dose 125 mg .ROUTE .STK-MED ONE Sterile Water Confirm 03/13/25 10:30 Water For Injection,Sterile 10 Ml Vial Administered 03/13/25 10:31 Dose 10 ml IJ .STK-MED ONE Lab/Rad Data: Laboratory Result Diagrams 03/13/25 10:00 03/13/25 10:00 Laboratory Results 03/13/25 03/13/25 03/13/25 Range/Units 13:10 11:20 10:00 WBC (4.23-9.07) x10^3/uL RBC (4.63-6.08) x10^6/uL Hgb (13.7-17.5) g/dL Hct (40.1-51.0) % MCV (79.0-92.2) fL MCH (25.7-32.2) pg MCHC (32.3-36.5) g/dL RDW (11.6-14.4) % Plt Count (163-337) x10^3/uL MPV (9.4-12.4) fL Gran % (34.0-67.9) % Immature Gran % (Auto) (0.001-0.429) % Nucleat RBC Rel Count (0.00-0.2) % Eos # (Auto) (0.04-0.54) x10^3/uL Immature Gran # (Auto) (0.001-0.031) x10^3u/L Absolute Lymphs (auto) (1.32-3.57) x10^3/uL Absolute Monos (auto) (0.30-0.82) x10^3/uL Absolute Nucleated RBC (0.00-0.012) x10^3u/L Lymphocytes % (21.8-53.1) % Monocytes % (5.3-12.2) % Eosinophils % (0.8-7.0) % Basophils % (0.2-1.2) % Absolute Granulocytes (1.78-5.38) x10^3/uL Basophils # (0.01-0.08) x10^3/uL PT (9.4-12.5) SECONDS INR (0.8-3.0) APTT (25.1-36.5) SECONDS D-Dimer (0.0-0.50) mg/L Puncture Site rt rad pCO2 64 H* (35-45) mmHg pO2 64 L (75-100) mmHg Base Excess 10.0 H (-2.0-2.0) O2 Saturation 88.7 L (94-100) g/dF ABG pH 7.38 (7.35-7.45) ABG HCO3 37.9 H* (22-28) ABG O2 Sat (Measured) 94.9 L (95-100) % Ramos Test y A-a Gradient 56 a/A Ratio 0.53 Hemoglobin 14.4 Carboxyhemoglobin 5.7 (0.0-6.9) % THgb Methemoglobin 0.8 L (1.4-1.5) % Temperature 37.0 C POC O2 Flow Rate 28 % Sodium (135-145) mmol/L Potassium 3.9 (3.5-5.1) mmol/L Chloride (98-107) mmol/L Carbon Dioxide (22-30) mmol/L Anion Gap (5-15) MEQ/L BUN (9-20) mg/dL Creatinine (0.66-1.25) mg/dL Estimated GFR ML/MIN Glucose (74-106) mg/dL Calcium (8.4-10.2) mg/dL Total Bilirubin (0.2-1.3) mg/dL AST (17-59) U/L ALT (0-50) U/L Alkaline Phosphatase (38-126) U/L Troponin I < 0.012 < 0.012 (0.000-0.033) ng/mL NT-Pro-B Natriuret Pep (<300) pg/mL Serum Total Protein (6.3-8.2) g/dL Albumin (3.5-5.0) g/dL 03/13/25 03/13/25 03/13/25 Range/Units 10:00 10:00 10:00 WBC 10.3 H (4.23-9.07) x10^3/uL RBC 4.69 (4.63-6.08) x10^6/uL Hgb 14.5 (13.7-17.5) g/dL Hct 44.8 (40.1-51.0) % MCV 95.5 H (79.0-92.2) fL MCH 30.9 (25.7-32.2) pg MCHC 32.4 (32.3-36.5) g/dL RDW 12.6 (11.6-14.4) % Plt Count 267 (163-337) x10^3/uL MPV 11.4 (9.4-12.4) fL Gran % 68.5 H (34.0-67.9) % Immature Gran % (Auto) 0.5 H (0.001-0.429) % Nucleat RBC Rel Count 0.0 (0.00-0.2) % Eos # (Auto) 0.19 (0.04-0.54) x10^3/uL Immature Gran # (Auto) 0.05 H (0.001-0.031) x10^3u/L Absolute Lymphs (auto) 1.86 (1.32-3.57) x10^3/uL Absolute Monos (auto) 1.10 H (0.30-0.82) x10^3/uL Absolute Nucleated RBC 0.00 (0.00-0.012) x10^3u/L Lymphocytes % 18.0 L (21.8-53.1) % Monocytes % 10.7 (5.3-12.2) % Eosinophils % 1.8 (0.8-7.0) % Basophils % 0.5 (0.2-1.2) % Absolute Granulocytes 7.06 H (1.78-5.38) x10^3/uL Basophils # 0.05 (0.01-0.08) x10^3/uL PT 11.1 (9.4-12.5) SECONDS INR 0.99 (0.8-3.0) APTT 30.6 (25.1-36.5) SECONDS D-Dimer < 0.19 (0.0-0.50) mg/L Puncture Site pCO2 (35-45) mmHg pO2 (75-100) mmHg Base Excess (-2.0-2.0) O2 Saturation (94-100) g/dF ABG pH (7.35-7.45) ABG HCO3 (22-28) ABG O2 Sat (Measured) (95-100) % Ramos Test A-a Gradient a/A Ratio Hemoglobin Carboxyhemoglobin (0.0-6.9) % THgb Methemoglobin (1.4-1.5) % Temperature C POC O2 Flow Rate % Sodium 142 (135-145) mmol/L Potassium 4.3 (3.5-5.1) mmol/L Chloride 100 (98-107) mmol/L Carbon Dioxide 34 H (22-30) mmol/L Anion Gap 12.6 (5-15) MEQ/L BUN 15 (9-20) mg/dL Creatinine 0.67 (0.66-1.25) mg/dL Estimated GFR 119.6 ML/MIN Glucose 107 H (74-106) mg/dL Calcium 9.2 (8.4-10.2) mg/dL Total Bilirubin 0.30 (0.2-1.3) mg/dL AST 27 (17-59) U/L ALT 25 (0-50) U/L Alkaline Phosphatase 74 (38-126) U/L Troponin I (0.000-0.033) ng/mL NT-Pro-B Natriuret Pep 20.4 (<300) pg/mL Serum Total Protein 7.1 (6.3-8.2) g/dL Albumin 4.4 (3.5-5.0) g/dL - Progress Progress Note: 03/13/25 14:16 Patient heart score 4 for history highly suspicious and greater than 3 risk factors. Patient also has CO2 retention and hypoxemia. Will need to be assessed for O2 needs. Will need to rule out for cardiac event. Also suspicious lesion will likely need outpatient biopsy as well as follow-up of renal adenoma. Was updated on all findings including the finding of adrenal mass all laboratory studies and clinical exam studies including the mass on his back. 03/13/25 15:34 Evangelista with [facility] transfer line who accepts patient under Dr. Arturo Pires. 03/13/25 15:35 - Departure Departure Disposition: Observation Clinical Impression: Mass on back, Left adrenal mass, Hypercarbia, Noncompliance with medication regimen Chest pain Qualifiers: Chest pain type: unspecified Qualified Code(s): R07.9 - Chest pain, unspecified Hypertension Qualifiers: Hypertension type: unspecified Qualified Code(s): I10 - Essential (primary) hypertension Condition: Stable Critical Care Time: Yes Critical Care Time(excluding separately billable procedures): Critical 30-74 mins Referrals: DOCTOR,NO FAMILY [Primary Care Provider, UNKNOWN] - Follow up/PCP as directed
[2025-03-13 12:01] LABS: A-aADO2 56; ABG HEMOGLOBIN 14.4; ABG POTASSIUM 3.9 (3.5-5.1); ARTERIAL BLD GAS O2 SATURATION 94.9 % (95-100); ARTERIAL BLOOD GAS BASE EXCESS 10.0 (-2.0-2.0); ARTERIAL BLOOD GAS FIO2 28 %; ARTERIAL BLOOD GAS PO2 64 mmHg (75-100); ARTERIAL BLOOD GAS TEMPERATURE 37.0 C; HCO3- 37.9 (22-28); HGB O2 SAT 88.7 g/dF (94-100); Methhemoglobin 0.8 % (1.4-1.5); paO2 pAO1 0.53
[2025-03-13 12:02] LABS: ABG SITE rt rad; ALLEN TEST OK? y; ARTERIAL BLOOD GAS PCO2 64 mmHg (35-45)
--- NOTE | 2025-03-13 12:22 | XRAY ---
Indication: Chest pain. Pulmonary embolus. Multiple contiguous axial images obtained through the chest using 99 cc Isovue 370 contrast and PE protocol. Comparison: None Good opacification pulmonary arteries. However mild respiration artifact limits evaluation for pulmonary embolus, especially both mid to lower lungs. No obvious pulmonary embolus. Heart not enlarged. Aorta is normal in course and caliber. No pathologic mediastinal/hilar lymphadenopathy. Lungs inflated and grossly clear. Bony thorax intact. Limited upper abdomen demonstrates large incompletely visualized geographic hepatic hypoattenuations, probably hepatic steatosis. Also 5.3 x 3.0 cm left adrenal gland noncalcified mass. Impression: 1. Pulmonary embolus evaluation limited by respiration artifact. No obvious pulmonary embolus. 2. Left adrenal gland 5.3 x 3.0 cm noncalcified mass. This measured 4.4 x 2.[address] abdomen/pelvis with contrast May 18, 2018. Again rule out adrenal adenoma which could be confirmed on a noncontrast exam. 3. Probable hepatic steatosis.
[2025-03-13] MEDS ORDERED: BABY ASPIRIN 81 MG CHEW ONE (13:19)
[2025-03-13] MEDS: BABY ASPIRIN 81 MG CHEW PO ONE (13:20)
[2025-03-13 15:07] VITALS: BP 139/95
[2025-03-13] MEDS: Nicoderm CQ 21 MG TOP ONE (16:54)
[2025-03-13 17:05] VITALS: PULSE 108; RESP 26; O2SAT 94
== END 2025-03-13 17:20 | disposition short-term general hospital (02) ==
LOC: ED 10:01
DX: R22.2 Localized swelling, mass and lump, trunk (principal); E27.9 Disorder of adrenal gland, unspecified; R06.89 Other abnormalities of breathing; Z91.148 Patient's other noncompliance with medication regimen for other reason; R07.9 Chest pain, unspecified; I10 Essential (primary) hypertension; Z72.0 Tobacco use

== ENCOUNTER 2025-04-19 15:09 | Emergency (ER) | payer OTHER ==
[2025-04-19] MEDS ORDERED: DUONEB 0.5-3 MG/3 ml Neb IH ONE (15:14)
--- NOTE | 2025-04-19 15:15 | ERPHSYRPT ---
- History of Present Illness Time Seen by Provider: 04/19/25 15:15 Source: patient Exam Limitations: no limitations, clinical condition Physician History: This is a 44-year-old white male patient who arrives per private vehicle sent over from urgent care clinic because of patient having oxygen saturation level of 86%. At home, the patient states that he has been having increasing shortness of breath and associated sore throat. Patient does not have a primary care provider. He does not have chest pain. He had a fever at home of 101.3 F. On arrival to the emergency department he has tachycardia 108 bpm and is afebrile. Oxygen saturation level is 86% on oxygen supplementation. Respiratory therapy is present and will be performing ABG and a lactic acid. Patient has a history of COPD, hyperlipidemia and hypertension. He has no vomiting or diarrhea symptoms. He denies abdominal pain. Timing/Duration: day(s) (2) Severity of Dyspnea-Max: moderate Severity of Dyspnea-Current: moderate Possible Cause: no prior episodes Associated Symptoms: fever, No cough, No chest pain/discomfort Allergies/Adverse Reactions: lidocaine Allergy (Intermediate, Verified 03/13/25 10:02) Swelling pt now states he is not 02/2025 Home Medications: Albuterol 8 gm Mdi Hfa [Ventolin Hfa MDI] 2 puffs IH Q6H PRN PRN 04/19/25 [History] Atorvastatin Calcium 20 mg PO HS 04/19/25 [History] Losartan/Hydrochlorothiazide [Losartan-Hctz 50-12.5 mg Tab] 1 each PO DAILY 04/19/25 [History] Hx Tetanus, Diphtheria Vaccination/Date Given: Yes Hx Influenza Vaccination/Date Given: No Hx Pneumococcal Vaccination/Date Given: No Travel Risk - International Travel Have you traveled outside of the country in past 3 weeks: No - Emerging Infectious Disease Are you exhibiting symptoms associated with any current EIDs: Yes Symptoms: Fever, Shortness of Breath - Review of Systems Constitutional: No Symptoms Eyes: No Symptoms Ears, Nose, & Throat: Throat Pain Respiratory: Dyspnea Cardiac: No Symptoms Abdominal/Gastrointestinal: No Symptoms Genitourinary Symptoms: No Symptoms Musculoskeletal: No Symptoms Skin: No Symptoms Neurological: No Symptoms Psychological: No Symptoms Endocrine: No Symptoms Hematologic/Lymphatic: No Symptoms Immunological/Allergic: No Symptoms All Other Systems: Reviewed and Negative - Past Medical History Pertinent Past Medical History: Yes Neurological History: No Pertinent History ENT History: No Pertinent History Cardiac History: No Pertinent History, Coronary Artery Disease, Myocardial Infarction ([place]) Respiratory History: Sleep Apnea, Other Endocrine Medical History: No Pertinent History Musculoskeletal History: No Pertinent History GI Medical History: GERD History: No Pertinent History Psycho-Social History: No Pertinent History Male Reproductive Disorders: No Pertinent History Other Medical History: current everyday smoker - Past Surgical History Past Surgical History: Yes Neuro Surgical History: No Pertinent History Cardiac: No Pertinent History Respiratory: No Pertinent History Gastrointestinal: Hernia Repair Genitourinary: No Pertinent History Musculoskeletal: No Pertinent History Male Surgical History: No Pertinent History Other Surgical History: Hx of oral surgery. - Social History Smoking Status: Current every day smoker How long have you smoked: 26 yrs Exposure to second hand smoke: Yes Drug Use: marijuana - Social Determinants of Health Will the patient participate in the screening: Declined to provide - Nursing Vital Signs Nursing Vital Signs: Initial Vital Signs Temperature 98.1 F 04/19/25 15:10 Pulse Rate 108 H 04/19/25 15:10 Respiratory Rate 24 04/19/25 15:10 Blood Pressure 101/64 04/19/25 15:10 O2 Sat by Pulse Oximetry 86 L 04/19/25 15:10 Pain Scale Pain Intensity 2 - Physical Exam General Appearance: mild distress, alert, obese Eye Exam: PERRL/EOMI, eyes nml inspection Ears, Nose, Throat Exam: hearing grossly normal, pharyngeal erythema Neck Exam: normal inspection, non-tender, supple, full range of motion Respiratory Exam: normal breath sounds, lungs clear, airway intact, No chest tenderness, No respiratory distress Cardiovascular/Chest Exam: tachycardia Abdominal/Gastrointestinal Exam: soft, normal bowel sounds Rectal Exam: not done Extremity Exam: non-tender, normal range of motion, normal inspection Neurologic Exam: alert, oriented x 3, cooperative, patient access representative II-XII nml as tested, nml cerebellar function, nml station & gait, sensation nml Skin Exam: normal color, warm, dry Lymphatic Exam: adenopathy SpO2 Interpretation: hypoxic O2 Delivery: Nasal Cannula - Course Nursing assessment & vital signs reviewed: Yes EKG Interpreted by Me: RATE (110), Sinus Tach, NORMAL AXIS, NORMAL INTERVALS, NORMAL QRS, Other (QTc is 404. No acute ischemia.) Ordered Tests: Active Orders 24 hr Category Date Time Status EKG-ER Only STAT Care 04/19/25 15:54 Completed IV Insertion STAT Care 04/19/25 15:54 Active Pulse Oximetry (ED) STAT Care 04/19/25 15:54 Active CHEST 1 VIEW (PORTABLE) Stat Exams 04/19/25 15:54 Completed ABG [ARTERIAL BLOOD GASES] Routine Lab 04/19/25 15:20 Completed BLOOD CULTURE Stat Lab 04/19/25 15:42 Received CBC W DIFF Stat Lab 04/19/25 15:20 Completed CMP Stat Lab 04/19/25 15:20 Completed Lactic Acid Stat Lab 04/19/25 15:20 Completed MONO SCREEN Stat Lab 04/19/25 15:20 Completed NT PRO BNPII Stat Lab 04/19/25 15:20 Completed TROPONIN Q4H Lab 04/19/25 15:20 Completed TROPONIN Q4H Lab 04/19/25 20:00 Ordered UA W/RFX UR CULTURE Stat Lab 04/19/25 17:52 Completed BiPap/CPAP ROUTINE RT 04/19/25 16:13 Active Respiratory Therapy Assessment DAILY RT 04/19/25 15:32 Active Medication Summary Generic Name Dose Route Start Last Admin Trade Name Freq PRN Reason Stop Dose Admin Sodium Chloride 1,000 mls @ 100 mls/hr 04/19/25 16:00 04/19/25 16:02 Sodium Chloride 0.9% 1000 Ml IV 05/19/25 15:59 100 mls/hr .Q10H ELIGIO Administration Sodium Chloride 1,000 mls @ 999 mls/hr 04/19/25 17:57 04/19/25 18:00 Sodium Chloride 0.9% 1000 Ml IV 04/19/25 18:57 999 mls/hr .Q1H1M STA Administration Discontinued Medications Generic Name Dose Route Start Last Admin Trade Name Freq PRN Reason Stop Dose Admin Albuterol/Ipratropium Confirm 04/19/25 15:14 Ipratropium/Albuterol Sulfate 3 Ml Ampul.Neb Administered 04/19/25 15:15 Dose 3 ml IH .STK-MED ONE Albuterol/Ipratropium 3 ml 04/19/25 15:38 04/19/25 15:39 Ipratropium/Albuterol Sulfate 3 Ml Ampul.Neb IH 04/19/25 15:39 3 ml STAT ONE Administration Ceftriaxone Sodium 1 gm in 100 mls @ 200 mls/hr 04/19/25 17:54 04/19/25 18:33 Rocephin 1 Gm / 100 Ml Nacl IV 04/19/25 18:23 Infused STAT ONE Infusion Ceftriaxone Sodium Confirm 04/19/25 17:56 Rocephin 1 Gm / 100 Ml Nacl Administered 04/19/25 17:57 Dose 1 gm in 100 mls @ ud IV .STK-MED ONE Lab/Rad Data: Laboratory Result Diagrams 04/19/25 15:20 04/19/25 15:20 Laboratory Results 04/19/25 04/19/25 04/19/25 Range/Units 17:52 15:40 15:40 WBC (4.23-9.07) x10^3/uL RBC (4.63-6.08) x10^6/uL Hgb (13.7-17.5) g/dL Hct (40.1-51.0) % MCV (79.0-92.2) fL MCH (25.7-32.2) pg MCHC (32.3-36.5) g/dL RDW (11.6-14.4) % Plt Count (163-337) x10^3/uL MPV (9.4-12.4) fL Gran % (34.0-67.9) % Immature Gran % (Auto) (0.001-0.429) % Nucleat RBC Rel Count (0.00-0.2) % Eos # (Auto) (0.04-0.54) x10^3/uL Immature Gran # (Auto) (0.001-0.031) x10^3u/L Absolute Lymphs (auto) (1.32-3.57) x10^3/uL Absolute Monos (auto) (0.30-0.82) x10^3/uL Absolute Nucleated RBC (0.00-0.012) x10^3u/L Lymphocytes % (21.8-53.1) % Monocytes % (5.3-12.2) % Eosinophils % (0.8-7.0) % Basophils % (0.2-1.2) % Absolute Granulocytes (1.78-5.38) x10^3/uL Basophils # (0.01-0.08) x10^3/uL Puncture Site pCO2 (35-45) mmHg pO2 (75-100) mmHg Base Excess (-2.0-2.0) O2 Saturation (94-100) g/dF ABG pH (7.35-7.45) ABG HCO3 (22-28) ABG O2 Sat (Measured) (95-100) % Ramos Test A-a Gradient a/A Ratio Hemoglobin Carboxyhemoglobin (0.0-6.9) % THgb Methemoglobin (1.4-1.5) % Potassium (3.5-5.1) Temperature C POC O2 Flow Rate % Sodium (135-145) mmol/L Chloride (98-107) mmol/L Carbon Dioxide (22-30) mmol/L Anion Gap (5-15) MEQ/L BUN (9-20) mg/dL Creatinine (0.66-1.25) mg/dL Estimated GFR ML/MIN Glucose (74-106) mg/dL Lactic Acid (0.4-2.0) Calcium (8.4-10.2) mg/dL Total Bilirubin (0.2-1.3) mg/dL AST (17-59) U/L ALT (0-50) U/L Alkaline Phosphatase (38-126) U/L Troponin I (0.000-0.033) ng/mL NT-Pro-B Natriuret Pep (<300) pg/mL Serum Total Protein (6.3-8.2) g/dL Albumin (3.5-5.0) g/dL Urine Color Dark Yellow (Yellow) Urine Appearance Clear (Clear) Urine pH 5.5 (4.6-8.0) Ur Specific [place] >=1.030 A (1.005-1.030) Urine Protein 300 A (Negative) Urine Glucose (UA) Negative (Negative) mg/dL Urine Ketones Trace A (Negative) Urine Blood Negative (Negative) Urine Nitrite Negative (Negative) Urine Bilirubin Small A (Negative) Urine Urobilinogen 1.0 A (0.2) mg/dL Ur Leukocyte Esterase Negative (Negative) U Hyaline Cast (Auto) 3-5 A (0-2) /LPF Urine Microscopic RBC 0-2 (0-5) /HPF Urine Microscopic WBC 0-2 (0-5) /HPF Ur Epithelial Cells None Seen (None Seen) /HPF Urine Bacteria None Seen (None Seen) /HPF Urine Culture Reflexed NO (NO) Monoscreen (NEGATIVE) Influenza Type A Ag NEGATIVE (NEGATIVE) Influenza Type B Ag NEGATIVE (NEGATIVE) RSV (PCR) NEGATIVE (NEGATIVE) SARS-CoV-2 (PCR) NEGATIVE (NEGATIVE) Group A Strep Antibody DETECTED A (NEGATIVE) Slides for Path Review 04/19/25 04/19/25 04/19/25 Range/Units 15:20 15:20 15:20 WBC (4.23-9.07) x10^3/uL RBC (4.63-6.08) x10^6/uL Hgb (13.7-17.5) g/dL Hct (40.1-51.0) % MCV (79.0-92.2) fL MCH (25.7-32.2) pg MCHC (32.3-36.5) g/dL RDW (11.6-14.4) % Plt Count (163-337) x10^3/uL MPV (9.4-12.4) fL Gran % (34.0-67.9) % Immature Gran % (Auto) (0.001-0.429) % Nucleat RBC Rel Count (0.00-0.2) % Eos # (Auto) (0.04-0.54) x10^3/uL Immature Gran # (Auto) (0.001-0.031) x10^3u/L Absolute Lymphs (auto) (1.32-3.57) x10^3/uL Absolute Monos (auto) (0.30-0.82) x10^3/uL Absolute Nucleated RBC (0.00-0.012) x10^3u/L Lymphocytes % (21.8-53.1) % Monocytes % (5.3-12.2) % Eosinophils % (0.8-7.0) % Basophils % (0.2-1.2) % Absolute Granulocytes (1.78-5.38) x10^3/uL Basophils # (0.01-0.08) x10^3/uL Puncture Site pCO2 (35-45) mmHg pO2 (75-100) mmHg Base Excess (-2.0-2.0) O2 Saturation (94-100) g/dF ABG pH (7.35-7.45) ABG HCO3 (22-28) ABG O2 Sat (Measured) (95-100) % Ramos Test A-a Gradient a/A Ratio Hemoglobin Carboxyhemoglobin (0.0-6.9) % THgb Methemoglobin (1.4-1.5) % Potassium 3.9 (3.5-5.1) Temperature C POC O2 Flow Rate % Sodium 136 (135-145) mmol/L Chloride 94 L (98-107) mmol/L Carbon Dioxide 34 H (22-30) mmol/L Anion Gap 11.3 (5-15) MEQ/L BUN 15 (9-20) mg/dL Creatinine 0.81 (0.66-1.25) mg/dL Estimated GFR 112.9 ML/MIN Glucose 115 H (74-106) mg/dL Lactic Acid (0.4-2.0) Calcium 9.0 (8.4-10.2) mg/dL Total Bilirubin 0.60 (0.2-1.3) mg/dL AST 20 (17-59) U/L ALT 16 (0-50) U/L Alkaline Phosphatase 82 (38-126) U/L Troponin I < 0.012 (0.000-0.033) ng/mL NT-Pro-B Natriuret Pep < 20.0 (<300) pg/mL Serum Total Protein 6.9 (6.3-8.2) g/dL Albumin 4.1 (3.5-5.0) g/dL Urine Color (Yellow) Urine Appearance (Clear) Urine pH (4.6-8.0) Ur Specific [place] (1.005-1.030) Urine Protein (Negative) Urine Glucose (UA) (Negative) mg/dL Urine Ketones (Negative) Urine Blood (Negative) Urine Nitrite (Negative) Urine Bilirubin (Negative) Urine Urobilinogen (0.2) mg/dL Ur Leukocyte Esterase (Negative) U Hyaline Cast (Auto) (0-2) /LPF Urine Microscopic RBC (0-5) /HPF Urine Microscopic WBC (0-5) /HPF Ur Epithelial Cells (None Seen) /HPF Urine Bacteria (None Seen) /HPF Urine Culture Reflexed (NO) Monoscreen NEGATIVE (NEGATIVE) Influenza Type A Ag (NEGATIVE) Influenza Type B Ag (NEGATIVE) RSV (PCR) (NEGATIVE) SARS-CoV-2 (PCR) (NEGATIVE) Group A Strep Antibody (NEGATIVE) Slides for Path Review 04/19/25 04/19/25 04/19/25 Range/Units 15:20 15:20 15:20 WBC 20.2 H (4.23-9.07) x10^3/uL RBC 4.50 L (4.63-6.08) x10^6/uL Hgb 13.9 (13.7-17.5) g/dL Hct 41.8 (40.1-51.0) % MCV 92.9 H (79.0-92.2) fL MCH 30.9 (25.7-32.2) pg MCHC 33.3 (32.3-36.5) g/dL RDW 12.9 (11.6-14.4) % Plt Count 276 (163-337) x10^3/uL MPV 11.8 (9.4-12.4) fL Gran % 79.8 H (34.0-67.9) % Immature Gran % (Auto) 0.7 H (0.001-0.429) % Nucleat RBC Rel Count 0.0 (0.00-0.2) % Eos # (Auto) 0.02 L (0.04-0.54) x10^3/uL Immature Gran # (Auto) 0.14 H (0.001-0.031) x10^3u/L Absolute Lymphs (auto) 1.80 (1.32-3.57) x10^3/uL Absolute Monos (auto) 2.07 H (0.30-0.82) x10^3/uL Absolute Nucleated RBC 0.00 (0.00-0.012) x10^3u/L Lymphocytes % 8.9 L (21.8-53.1) % Monocytes % 10.2 (5.3-12.2) % Eosinophils % 0.1 L (0.8-7.0) % Basophils % 0.3 (0.2-1.2) % Absolute Granulocytes 16.12 H (1.78-5.38) x10^3/uL Basophils # 0.07 (0.01-0.08) x10^3/uL Puncture Site RIGHT RADIAL pCO2 61 H* (35-45) mmHg pO2 164 H* (75-100) mmHg Base Excess 10.3 H (-2.0-2.0) O2 Saturation 95.2 (94-100) g/dF ABG pH 7.40 (7.35-7.45) ABG HCO3 37.8 H* (22-28) ABG O2 Sat (Measured) 100.0 (95-100) % Ramos Test YES A-a Gradient 16 a/A Ratio 0.91 Hemoglobin 14.6 Carboxyhemoglobin 3.7 (0.0-6.9) % THgb Methemoglobin 1.1 L (1.4-1.5) % Potassium 3.8 (3.5-5.1) Temperature 37.0 C POC O2 Flow Rate 36 % Sodium (135-145) mmol/L Chloride (98-107) mmol/L Carbon Dioxide (22-30) mmol/L Anion Gap (5-15) MEQ/L BUN (9-20) mg/dL Creatinine (0.66-1.25) mg/dL Estimated GFR ML/MIN Glucose (74-106) mg/dL Lactic Acid 0.5 (0.4-2.0) Calcium (8.4-10.2) mg/dL Total Bilirubin (0.2-1.3) mg/dL AST (17-59) U/L ALT (0-50) U/L Alkaline Phosphatase (38-126) U/L Troponin I (0.000-0.033) ng/mL NT-Pro-B Natriuret Pep (<300) pg/mL Serum Total Protein (6.3-8.2) g/dL Albumin (3.5-5.0) g/dL Urine Color (Yellow) Urine Appearance (Clear) Urine pH (4.6-8.0) Ur Specific [place] (1.005-1.030) Urine Protein (Negative) Urine Glucose (UA) (Negative) mg/dL Urine Ketones (Negative) Urine Blood (Negative) Urine Nitrite (Negative) Urine Bilirubin (Negative) Urine Urobilinogen (0.2) mg/dL Ur Leukocyte Esterase (Negative) U Hyaline Cast (Auto) (0-2) /LPF Urine Microscopic RBC (0-5) /HPF Urine Microscopic WBC (0-5) /HPF Ur Epithelial Cells (None Seen) /HPF Urine Bacteria (None Seen) /HPF Urine Culture Reflexed (NO) Monoscreen (NEGATIVE) Influenza Type A Ag (NEGATIVE) Influenza Type B Ag (NEGATIVE) RSV (PCR) (NEGATIVE) SARS-CoV-2 (PCR) (NEGATIVE) Group A Strep Antibody (NEGATIVE) Slides for Path Review YES - Progress Progress: improved, re-examined Air Movement: fair Progress Note: 04/19/25 16:05 My medical decision making and the assignment of moderate to high complexity of this patient's medical issue today is based on review of the patient's past medical history, reviewed patient's medication list, reviewed the patient drug allergy list, history present illness and physical findings on examination. The workup in this patient includes placement of intravenous line, blood cultures, respiratory therapy consultation/management, nebulizer treatment, viral swabs, strep test, monotest, chest x-ray, BNP, troponin level, twelve-lead EKG and ABG. Differential diagnosis includes was not limited to pulmonary infiltrate, viral illness, strep pharyngitis, myocardial infarction, CHF exacerbation 04/19/25 18:57 I interpreted the patient's laboratory data results. Based on laboratory data results, the patient has a leukocytosis of 20,200 with a left shift as well as strep pharyngitis. He has a normal troponin level and normal BNP level. I interpreted the preliminary chest x-ray report. I see no acute cardiopulmonary process. The final chest x-ray report was interpreted by the radiologist and I reviewed the impression. The impression states chest is inflated and clear. Bony thorax intact. No new or acute findings. I informed the patient of the workup results. I reexamined him. He has room air oxygen saturation levels running anywhere between 89 and 92%. He states his oxygen normally runs low. He is supposed to be on a CPAP machine which he no longer has after he moved from [place] to [place]. He does not have chest pain at this time. He wants to go home. He is still mildly tachycardic with the above-stated room air oxygen saturation levels. He has been diagnosed with strep pharyngitis. I explained to him that it is my recommendation that he be placed in a hospital setting where he can be monitored, receive IV fluids, intravenous antibiotics and repeat lab test. He could also be evaluated in the hospital setting and with respiratory therapy. He prefers to be discharged to home. We will provide him with another half liter of IV fluids. Will reassess with him. He understands the benefits of being placed in a hospital setting and he understands the risk of leaving AGAINST MEDICAL ADVICE. Those risks include but are not limited to worsening condition, sepsis and possible . He is awake alert and oriented and he understands. If he leaves he will sign AGAINST MEDICAL ADVICE form. He understands we will still send a prescription of steroids and antibiotics to his pharmacy. 04/19/25 19:00 He states he is feeling much improved. Blood Culture(s) Obtained: Yes Antibiotics given: Yes Counseled pt/family regarding: lab results, diagnosis, rad results Medical Desision Making - Diagnostic Testing Diagnostic test were ordered, analyzed, and reviewed by me: Yes Radiological Interpretation: Interpreted by me, Reviewed by me, Teleradiologist Report - Risk of complications The pt has a high risk of morbidity or mortality based on: Decision regarding hospitilization or escalation of hosp level of care - Departure Departure Disposition: AMA Clinical Impression: Strep pharyngitis, Hypoxia, Leukocytosis, Tachycardia Condition: Fair Critical Care Time: Yes Critical Care Time(excluding separately billable procedures): Critical 30-74 mins (45) Referrals: DOCTOR,NO FAMILY [Primary Care Provider, UNKNOWN] - Follow up/PCP as directed Additional Instructions: Drink plenty of clear liquids. Take your antibiotics and steroids as prescribed. Return to the emergency department if you decide to be placed in a hospital setting or if your symptoms worsen. Call your primary care provider tomorrow, 04/20/2025, to make arrangements for follow-up appointment to be seen in the next 3 to 5 days. Prescriptions: Cefdinir 300 mg PO BID #14 cap Prednisone 10 mg [Deltasone 10 mg] 10 mg PO TID #12 tablet
[2025-04-19 15:21] VITALS: TEMP 98.1
[2025-04-19 15:33] LABS: A-aADO2 16; ABG HEMOGLOBIN 14.6; ABG POTASSIUM 3.8 (3.5-5.1); ARTERIAL BLD GAS O2 SATURATION 100.0 % (95-100); ARTERIAL BLOOD GAS BASE EXCESS 10.3 (-2.0-2.0); ARTERIAL BLOOD GAS FIO2 36 %; ARTERIAL BLOOD GAS PO2 164 mmHg (75-100); ARTERIAL BLOOD GAS TEMPERATURE 37.0 C; HCO3- 37.8 (22-28); HGB O2 SAT 95.2 g/dF (94-100); Methhemoglobin 1.1 % (1.4-1.5); paO2 pAO1 0.91
[2025-04-19 15:34] LABS: ABG SITE RIGHT RADIAL; ALLEN TEST OK? YES; ARTERIAL BLOOD GAS PCO2 61 mmHg (35-45)
[2025-04-19] MEDS: DUONEB 0.5-3 MG/3 ml Neb IH ONE (15:39)
[2025-04-19 16:04] LABS: BASOPHIL % 0.3 % (0.2-1.2); Basophil (Absolute #) 0.07 x10^3/uL (0.01-0.08); Eosinophil (Absolute #) 0.02 x10^3/uL (0.04-0.54); Hematocrit 41.8 % (40.1-51.0); Hemoglobin 13.9 g/dL (13.7-17.5); IMMATURE GRAN # 0.14 x10^3u/L (0.001-0.031); IMMATURE GRAN % 0.7 % (0.001-0.429); Lymphocyte (Absolute #) 1.80 x10^3/uL (1.32-3.57); Mean Corpuscular Hemoglobin 30.9 pg (25.7-32.2); Mean Corpuscular Hgb Concent. 33.3 g/dL (32.3-36.5); Monocyte (Absolute #) 2.07 x10^3/uL (0.30-0.82); NUCLEATED RBC # 0.00 x10^3u/L (0.00-0.012); NUCLEATED RBC % 0.0 % (0.00-0.2); Platelet Count 276 x10^3/uL (163-337); Red Blood Count 4.50 x10^6/uL (4.63-6.08); White Blood Count 20.2 x10^3/uL (4.23-9.07)
[2025-04-19 16:16] LABS: Calcium 9.0 mg/dL (8.4-10.2); Carbon Dioxide 34 mmol/L (22-30); Creatinine 1 0.81 mg/dL (0.66-1.25); EST GLOMERULAR FILTRATION RATE 112.9 ML/MIN; Glucose 115 mg/dL (74-106); NT PRO BNPII < 20.0 pg/mL (<300); Potassium 3.9 mmol/L (3.5-5.1); SGOT/AST 20 U/L (17-59); SGPT/ALT 16 U/L (0-50); Total Protein 6.9 g/dL (6.3-8.2)
[2025-04-19 16:32] LABS: Slide Review 1 YES
[2025-04-19 16:39] LABS: INFLUENZA A NEGATIVE (NEGATIVE); INFLUENZA B NEGATIVE (NEGATIVE); RESPIRATORY SYNCTIAL VIRUS NEGATIVE (NEGATIVE); SARS-CoV-2 Xpert Express NEGATIVE (NEGATIVE)
--- NOTE | 2025-04-19 16:52 | XRAY ---
Indication: Short of breath. Fever. Comparison: March 13, 2025 Portable chest inflated and remains clear. Heart not enlarged. Bony thorax intact. No new/acute findings.
[2025-04-19] MEDS ORDERED: ROCEPHIN 1 GM / 100 ML NaCl 1 GM/100 ML IVPB IV ONE (17:56)
[2025-04-19] MEDS: ROCEPHIN 1 GM / 100 ML NaCl 1 GM/100 ML IVPB IV ONE (17:59)
[2025-04-19 18:09] LABS: Glucose, Urine Negative (Negative); Protein,Urine Dip 300 (Negative); RBC 0-2 /HPF (0-5); WBC 0-2 /HPF (0-5)
[2025-04-19] MEDS ORDERED: HYDROCODONE-ACETAMIN 2.5-108/5 ML SOLUTION ONE (19:30)
[2025-04-19] MEDS: HYDROCODONE-ACETAMIN 2.5-108/5 ML SOLUTION PO STA (19:51)
[2025-04-19 20:08] VITALS: BP 99/76; PULSE 98; RESP 13; O2SAT 94
== END 2025-04-19 20:30 | disposition left against medical advice (07) ==
LOC: ED 15:09
DX: J02.0 Streptococcal pharyngitis (principal); R09.02 Hypoxemia; D72.829 Elevated white blood cell count, unspecified; R00.0 Tachycardia, unspecified; J44.1 Chronic obstructive pulmonary disease with (acute) exacerbation; R50.9 Fever, unspecified; I10 Essential (primary) hypertension; Z79.899 Other long term (current) drug therapy; Z72.0 Tobacco use